=== PATIENT | male | born 1990 | race Caucasian/White ===

== ENCOUNTER 2019-10-11 23:51 | Observation (INO) | payer OTHER, SELFPAY ==
[2019-10-11 23:51] VITALS: BP 170/96; PULSE 75; RESP 16; TEMP 36.1; O2SAT 99; BMI 33.9
[2019-10-12] VITALS (8 sets, daily range): BP systolic 124–164; BP diastolic 70–101; PULSE 60–85; RESP 14–18; TEMP 36.3–36.8; O2SAT 96–100; BMI 34.9
--- NOTE | 2019-10-12 00:16 | ED.VIS.GI ---
History of Present Illness Chief Complaint: Chest Pain Informant: Patient - Abdominal Pain/Flank Pain Onset: Hours - 2-3 Context: Sudden Onset - mild, worsened Timing: Continuous Quality: Aching Location: Epigastric Current Severity: Severe Maximum Severity: Severe Worsened by: Nothing Relieved by: Antacids - initially TUMS seemed to help a little but then sx worsened quickly. took ranitidine also. - Nausea/Vomiting/Emesis GI Symptom: Negative for: Nausea, Vomiting - Diarrhea/Melena/Hematochezia GI Symptom: Negative for: Diarrhea, Melena, Hematochezia Associated Symptoms: Negative for: Dysuria, Frequency, Hematuria, Urgency Narrative: Pain in epigastrium and lower retrosternal area. States he initially felt like this was indigestion he has had before, however it became a lot worse and he has never had a do this before. He was sitting on the couch when it started. Lying down versus sitting up does not make a difference. It is not exertional. No dyspnea. No radiation of the discomfort into his back, arms, jaw, lower abdomen, or elsewhere. Has history of mild intermittent asthma, which is not related to this. Denies any pain or swelling in his legs recently. Nonpleuritic discomfort. No nausea or vomiting, he tried to gag himself because he thought that vomiting might make this feel better, however he was not able to vomit with gagging himself either. He admits that he has been having milder form of this discomfort that he has been calling [facility] nightly for the past 1 or 2 weeks. He has seen no association with meals. He denies any significant NSAID use for any reason recently. - Past Medical History (1) Mild asthma Status: Chronic Past Medical History - Allergies and Home Meds Allergies/Adverse Reactions: Allergies No Known Allergies Allergy (Verified 10/12/19 00:00) Primary Care Physician: NOT,DEFINED [NON-STAFF] - Surgical History: no surgical history Smoking Status: Never smoker Alcohol: None Review of Systems General: Denies: Chills, Fever, Sweats Eyes: Denies: Visual changes - bilaterally, Diplopia ENT: Denies: Rhinorrhea, Sore throat Cardiovascular: Reports: Chest pain. Denies: Palpitations Respiratory: Denies: Dyspnea, Cough, Dyspnea on exertion Gastrointestinal: Reports: Abdominal pain. Denies: Nausea, Vomiting, Diarrhea, Melena, Hematochezia Genitourinary: Denies: Dysuria, Hematuria, Frequency Musculoskeletal: Denies: Back pain, Swelling, Extremity Pain Skin: Denies: Rash, Wounds Neurological: Denies: Headache, Weakness, Numbness Physical Exam Vital Signs/Narrative: Vital Signs Temp Pulse Resp BP Pulse Ox 10/12/19 00:08 74 14 164/101 H 100 10/11/19 23:51 97 F L 75 16 170/96 H 99 Inital Vital Signs reviewed: Yes General: Well nourished, Well developed, No Acute Distress - uncomfortable, no distress Head: Normocephalic, Atraumatic Eyes: Perrl, EOMI ENT: Moist mucous membranes, No rhinorrhea Neck: Supple, Nontender. Negative for: No lymphadenopathy Cardiovascular: Regular rate, Regular rhythm, No murmurs Respiratory: No distress, CTA bilaterally, Chest nontender Abdomen: Soft, Nondistended, Normal bowel sounds, No masses, Tender - epigastrium > upper abd; rest of abd benign/NT. Negative for: Guarding, Rebound tenderness Back: Nontender, Normal Inspection. Negative for: CVA tenderness Extremities: Nontender, No edema. Negative for: Calf Tenderness Skin: Normal color, No rash, No Trauma Neurological: Alert, Oriented x3, Cranial nerves II-XII grossly intact, Normal Strength, Normal Sensation, Normal Gait Psychological: Normal affect, Normal Mood Diagnostic/Tx/Re-eval Impressions Abdomen/Pelvis CT 10/12/19 01:05 IMPRESSION: Thoracolumbar spine degenerative disease with increased kyphosis otherwise unremarkable unenhanced CT of the abdomen and pelvis. Specifically, no acute process throughout the gastrointestinal tract noted. No bowel obstruction. Abdominal viscera are unremarkable. Electronically Signed: Herlinda Huertas MD at 2:00 EDT , Service support , 10/12/19 01:05 CT Abd [Abdomen/Pelvis W IV Cont ONLY] [CT] Stat 10/12/19 03:16 US Gallbladder [Gallbladder] [US] Stat Laboratory Results 10/12/19 10/12/19 00:13 00:13 WBC 8.7 RBC 5.61 Hgb 16.2 Hct 48.0 MCV 85.6 MCH 28.9 MCHC 33.8 RDW Std Deviation 37.6 RDW Coeff of Roxi 12.1 Plt Count 229 MPV 8.7 Immature Gran % (Auto) 0.800 Neut % (Auto) 60.1 Lymph % (Auto) 28.0 Pondera % (Auto) 8.0 Eos % (Auto) 2.3 Baso % (Auto) 0.8 Absolute Neuts (auto) 5.2 Absolute Lymphs (auto) 2.42 Nucleated RBC % 0 Sodium 140 Potassium 3.9 Chloride 106 Carbon Dioxide 30.0 Anion Gap 4 L BUN 19 H Creatinine 1.37 H Estim Creat Clear Calc 88.11 Est GFR (MDRD) Af Amer 79 Est GFR (MDRD) Non-Af 66 BUN/Creatinine Ratio 13.9 Glucose 104 Calcium 9.4 Total Bilirubin 0.50 AST 21 ALT 39 Alkaline Phosphatase 94 Troponin I < 0.015 Total Protein 8.0 Albumin 4.4 Globulin 3.6 Albumin/Globulin Ratio 1.2 Lipase 116 - Rhythm Strip Rhythm Strip: Sinus Rhythm Rate: 72 Ectopy: None - EKG Initial EKG Interpretation: Sinus Rhythm, No Acute Injury Pattern - normal EKG - Medical Decision Making Initially patient was given a GI cocktail although this did not help at all. He was then given morphine, he proceeded to have vomiting, and the morphine did not help very much. I then performed a bedside ultrasound of his gallbladder since the patient presents after ultrasound is gone and not available, and he was treated with Zofran. On my bedside [id number] exam, he has a gallstone that is shadowing in the neck of the gallbladder, and he has a positive sonographic Bullard's. CT abdomen/pelvis is ordered and he is given Toradol in addition, as I suspect the gallstone is causing his symptoms. Results are as above, unremarkable. Toradol did not really help him so he was given Dilaudid, this did help his pain. He was observed. His pain started coming back and I reexamined him. He has a positive sonographic Bullard's and a positive clinical Bullard's. He was given more pain medication, and at this time it is becoming more evident that he likely has early acute cholecystitis. I discussed with Dr. Kirkpatrick, she is in agreement and agrees to admit him, requesting that an ultrasound be obtained/ordered for the morning when staff arrives. ED Disposition - Plan for ED Patient: Disposition: Acute Care Hospital [facility] [place] [facility] Diagnosis: Acute cholecystitis due to biliary calculus Referrals: NOT,DEFINED [NON-STAFF] -
[2019-10-12 00:23] LABS: Absolute Lymphocyte Count 2.42 X10^3/uL (0.83-4.51); Absolute Neutrophil Count 5.2 X10^3/uL (2.0-7.7); Basophil# 0.07 X10^3/uL; Basophil% 0.8 % (0-1); Eosinophils% 2.3 % (0-5); Hemoglobin 16.2 g/dL (13.0-16.5); Lymphocyte # 2.42 X10^3/ul (4.0); Mean Corp Hgb Conc 33.8 g/dL (32-36); Mean Corpuscular Hgb 28.9 pg (27.0-32.0); Mean Corpuscular Volume 85.6 fL (80-94); Mean Platelet Vol. 8.7 fl (6.2-12.0); Monocyte# 0.69 X10^3/uL; NRBC Flagged by Analyzer 0 % (0-5); Neutrophil % 60.1 % (47-70); Platelet Count 229 K/mm3 (150-450); RBC Distribution Width CV 12.1 % (11.6-14.6); RBC Distribution Width SD 37.6 fl (35.1-43.9); Red Blood Count 5.61 M/mm3 (4.6-6.2); White Blood Count 8.7 K/mm3 (4.4-11.0)
--- NOTE | 2019-10-12 00:27 | EKG12_ITS ---
Test Reason : CP Blood Pressure : / mmHG Vent. Rate : 072 BPM Atrial Rate : 072 BPM P-R Int : 160 ms QRS Dur : 112 ms QT Int : 378 ms P-R-T Axes : -06 024 042 degrees QTc Int : 413 ms Normal sinus rhythm Normal ECG Confirmed by HERIBERTO LOW MD ([id number]), newspaper editor managing EMMETT PEGUERO ([id number]) on 10/12/2019 11:14:11 AM Referred By: BB Confirmed By:HERIBERTO LOW MD
[2019-10-12] MEDS: Mag Hydrox/Al Hydrox/Simeth 30 ML UDC PO (00:28)
[2019-10-12 00:37] LABS: ALB/GLOB Ratio 1.2 RATIO (0.9-2.4); AST(SGOT) 21 U/L (15-37); Alanine Aminotransfer ALT/SGPT 39 U/L (16-61); Albumin, Serum 4.4 g/dL (3.2-5.0); Alkaline Phosphatase 94 U/L (45-117); Anion Gap 4 (5-15); BUN 19 mg/dL (7-18); BUN/Creat Ratio 13.9 RATIO (10-20); Calcium,Total 9.4 mg/dL (8.5-10.1); Chloride 106 mmol/L (98-107); Creatinine, Serum 1.37 mg/dL (0.70-1.30); EST Glomerular Filtration Rate 66 mL/min (>60); Est Glom Filt Rate - Afr Amer 79 mL/min (>60); Estimated Creatinine Clearance 88.11 ml/min; Globulin 3.6 g/dL (2.2-4.2); Glucose 104 mg/dL (74-106); Lipase 116 U/L (73-393); Potassium 3.9 mmol/L (3.5-5.1); Sodium Level 140 mmol/L (136-145)
[2019-10-12] MEDS: Morphine 4 MG/ML Syringe IV (01:01)
[2019-10-12] MEDS: Ondansetron 4 MG/2 ML Vial IV (01:03)
--- NOTE | 2019-10-12 01:05 | CT_ITS ---
STUDY: CT ABDOMEN AND PELVIS WITHOUT CONTRAST REASON FOR EXAM: Male, 29 years old. UPPER ABD PAIN X SEVERAL HOURS. NKI. Hx of asthma and GERD RADIATION DOSAGE (If Supplied By Facility): CTDIvol = ( 16.35 ) mGy, DLP = ( 1338.73 ) mGycm TECHNIQUE: Transaxial images were obtained from the dome of the diaphragm to the symphysis pubis without oral contrast, and without intravenous contrast. Sagittal and coronal images were reconstructed. Individualized dose optimization techniques were used for this CT. COMPARISON: None. FINDINGS: The visualized lung bases are unremarkable. The visualized portions of the heart are within normal limits. Normal liver. Normal gallbladder and extrahepatic biliary system. Normal spleen. Normal pancreas. Normal bilateral adrenal glands. Normal right kidney. Normal left kidney. Normal visualized stomach. Normal small intestine. Normal colon. The appendix is visualized and appears normal. Normal abdominal aorta. Normal inferior vena cava. Normal retroperitoneum. Normal urinary bladder. Normal abdominal wall. Increased kyphosis at thoracolumbar junction with degenerative disc disease. CT/Abdomen/Pelvis W IV Cont ONLY IMPRESSION: Thoracolumbar spine degenerative disease with increased kyphosis otherwise unremarkable unenhanced CT of the abdomen and pelvis. Specifically, no acute process throughout the gastrointestinal tract noted. No bowel obstruction. Abdominal viscera are unremarkable. Electronically Signed: Herlinda Huertas MD at 2:00 EDT , Service support ,
[2019-10-12] MEDS: Ketorolac 30 MG/ML Syringe IV ×3 (01:09→21:00)
[2019-10-12] MEDS: HYDROmorphone 1 MG/ML Syringe IV ×2 (01:46→03:09)
--- NOTE | 2019-10-12 03:16 | US_ITS ---
STUDY: ABDOMINAL ULTRASOUND - RIGHT UPPER QUADRANT REASON FOR VISIT: Male, 29 years old right upper quadrant pain. TECHNIQUE: Ultrasound evaluation of the right upper quadrant was performed with real-time and static renee-scale imaging. TECHNICAL QUALITY: Adequate. COMPARISON: CT abdomen and pelvis October 12, 2019. FINDINGS: Liver: The liver measures 19.4 cm. There is increased echogenicity consistent with fatty infiltration. The bile ducts are within normal limits. There is hepatic color flow. The direction of portal flow is hepatopetal. There is no demonstrated mass lesion. Gallbladder: Borderline distended gallbladder. The gallbladder wall measures 4 mm. There is a negative sonographic Bullard''s sign. There is no pericholecystic fluid. There is a solitary echogenic gallstone within the gallbladder. Common Bile Duct (C.B.D.): The common bile duct measures 3 mm. Pancreas not visualized due to overlying bowel gas but normal on the recent CT scan. Right Kidney: Normal size of the right kidney. The right kidney measures 10.4 cm. Normal renal cortex. The right cortex measures 1.6 cm. There is no demonstrated renal mass or cyst. There is no right hydronephrosis. The CT scan of the abdomen and pelvis was reviewed. The spleen is at the upper limits of normal in size or mildly enlarged. US/Gallbladder IMPRESSION: Borderline distended gallbladder, cholelithiasis and mild gallbladder wall thickening, findings suggestive but not diagnostic of acute cholecystitis. Fatty liver. On the CT scan borderline splenomegaly. Electronically Signed: Phoenix Sena MD at 5:31 EDT , Service support ,
[2019-10-12] MEDS: Lactated Ringers 1,000 ML 150 ML IV ×2 (04:49→18:32)
--- NOTE | 2019-10-12 07:27 | PCM.HP.BLA ---
History and Physical Date of Admission: 10/12/19 Chief Complaint: abdominal pain History of Present Illness: 29 y/o otherwise healthy WM presents with complaint of right upper quadrant abdominal pain. He has noted this for the less than a day prior to admission. He did not a weeks history of acid indigestion and heartburn for which he took OTC ranitidine and TUMS and this seemed to help. He also noted greater than a week about, less than a day of abdominal crampy pain and nausea, and felt that this may have been an intestinal bug The pain was severe last night, 10 out of 10 on scale of 1-10 with 10 being the worst pain, presently it is a 1-2 out of 10. Denies fevers. Denies nausea/emesis at present. He was evaluated in ED - had normal WBC, normal LFTs, but pain was not able to be controlled by IV morphine. CT scan was obtained due to intractable pain - normal. Patient admitted for intractable abdominal pain. US obtained this morning - Gallbladder: Borderline distended gallbladder. The gallbladder wall measures 4 mm. There is a negative sonographic Bullard''s sign. There is no pericholecystic fluid. There is a solitary echogenic gallstone within the gallbladder. Common Bile Duct (C.B.D.): The common bile duct measures 3 mm. Pancreas not visualized due to overlying bowel gas but normal on the recent CT scan. Right Kidney: Normal size of the right kidney. The right kidney measures 10.4 cm. Normal renal cortex. The right cortex measures 1.6 cm. There is no demonstrated renal mass or cyst. There is no right hydronephrosis. The CT scan of the abdomen and pelvis was reviewed. The spleen is at the upper limits of normal in size or mildly enlarged. IMPRESSION: Borderline distended gallbladder, cholelithiasis and mild gallbladder wall thickening, findings suggestive but not diagnostic of acute cholecystitis. Fatty liver. 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 Review of Systems: General - denies fevers Cardiovascular denies chest pain, denies history of heart attack Pulmonary history of mild asthma - rarely symptomatic, denies shortness of breath, denies coughing up blood Gastrointestinal as per HPI Neurological denies denies seizures, denies history of stroke Genitourinary denies burning with urination, denies blood in urine Hematological denies spontaneous/prolonged bleeding Skin denies open non healing wounds Musculoskeletal denies history of fractures Endocrine denies diabetes Psychological denies hallucinations Physical examination: Vital signs Temp 97.9F HR 114 BP 151/86 RR 17[] BP [] General WD/WN WM in no apparent distress, alert and oriented, not septic appearing HEENT Normocephalic. EOM intact with sclera clear and no icterus noted. Neck is supple with no jugular venous distention noted. Trachea is midline. Lungs no labored breathing noted, such as retractions. No cough heard. Heart regular Abdomen soft but minimally tender in right upper quadrant with no peritoneal signs noted Extremities no calf tenderness noted. No pitting edema noted. Genitourinary/Rectal deferred Skin normal skin integrity. Neurological non focal Psychological normal affect, patient is calm and appropriate Impression: right upper quadrant abdominal pain cholelithiasis Discussion/Plan: I have discussed the above with the patient. The patient understands that in the present COVID crisis, indications for surgery are limited with gallbladder disease. I have offered laparoscopic cholecystectomy if there is evidence of cholecystitis and/or patient with intractable pain that will cause detriment to his QOL. He understands that the stresses of surgery may make him more susceptible to infections. I have explained the procedure to the patient. I have counseled the patient as to the risks of the procedure, including but not limited to: infection, bleeding, injury to any blood vessels/nerves, scar tissue, injury to any intraabdominal organs, injury to kidney/ureters, injury to bowel/bladder, injury to the common bile duct/biliary tree, bile leakage, intraabdominal abscess/bleeding, hernias at incisional sites, wound infections, possible open procedure, complications of anesthesia, postoperative pneumonia/cardiac problems/blood clots etc. the patient understands. He will think about his options I have answered all questions to the patient?s satisfaction and the patient has no further questions.
--- NOTE | 2019-10-12 07:55 | NM_ITS ---
CLINICAL: Male, 29 years old. Abdominal pain -- possible cholecystitis NUCLEAR BILIARY SCAN TECHNIQUE: Following the intravenous administration of 5.6 mCi of Tc Mebrofenin, hepatobiliary images was performed. Cholecystokinin (0.02 ug/kg) was then administered intravenously over a INSERT TIME minute period. COMPARISON STUDIES : Comparison made with prior sonogram and CT scan the abdomen and pelvis done earlier in the day. FINDINGS: Relatively prompt and homogeneous radiopharmaceutical concentration is noted by a normal sized liver. There are no parenchymal defects noted.. The gallbladder is not seen up to 2 hours following the injection of the radiopharmaceutical. Findings are in keeping with acute cholecystitis. NM/Hepatobilliary Img w/Pharm Int IMPRESSION: Findings in keeping with acute cholecystitis. Electronically Signed: Alexi Hope, at 14:56 EDT , Service support ,
[2019-10-12] MEDS: 0.9% Saline Lock 10 ML Syringe IV (11:28)
--- NOTE | 2019-10-12 16:04 | PCM.PN.BLA ---
Progress Note Discussed results of HIDA scan with patient, reveals non visualization of gallbladder consistent with acute cholecystitis. I have offered patient laparoscopic cholecystectomy, possible cholangiograms, patient asks for alternative - have also offered antibiotics and pain meds and discharge. Patient would like to trial regular diet and will think about it.
[2019-10-13] VITALS (11 sets, daily range): BP systolic 116–143; BP diastolic 63–85; PULSE 55–65; RESP 16–18; TEMP 36.1–36.8; O2SAT 92–99; BMI 34.9
--- NOTE | 2019-10-13 | GALL_PTH ---
PATIENT: JILLIAN KATZ LOC: PCU U#:[id number] AGE/SX: 29/M ROOM: [facility] RE10/12/[address]: Dr. Nancy Kirkpatrick MD : 1990 BED: 1 DIS: 10/13/2019 SPEC #: [id number] RECD: 10/14/19 11:08 STATUS: YAYA REQ #: [id number] LAURA: 10/13/19 00:[address]: Nancy Kirkpatrick DEPT: SURGICAL PATHOLOGY RECD BY: Campos Peña ENTERED: 10/14/19 11:08 SP TYPE: GHANSHYAM RODRIGUEZ DR: No Primary Care Phys Tissues: Gallbladder, NOS Procedures: Surgery Specimen Level III HEADER OPERATION: Laparoscopic cholecystectomy PRE-OP DIAGNOSIS: Cholelithiasis, acute cholecystitis TISSUE SUBMITTED: Gallbladder and contents MICROSCOPIC DIAGNOSIS Gallbladder, cholecystectomy: Acute and chronic cholecystitis with focal denudation of mucosa. Cholelithiasis. AM:edgar 10/15/19 MICROSCOPIC DESCRIPTION Slides are reviewed. GROSS DESCRIPTION Received is one container labeled with the patient's name and designated gallbladder. The specimen consists of a gallbladder measuring 7 cm in length and up to 3 cm in diameter. The external surface is pink-lozano, smooth and glistening for the most part. Focally it is granular, hemorrhagic and contains cautery artifact. The gallbladder contains green-yellow mucoid bile and one mulberry, greenish stone measuring 1 cm in diameter and one yellow, mulberry stone measuring 0.5 cm in greatest dimension. The mucosa is bile-stained and without any mass lesions. The gallbladder wall measures up to 0.3 cm in thickness. Card Mounter sections from the gallbladder and the cystic duct are submitted in one cassette. / SJ:edgar 10/14/19 TC:2 CPT: 08530
[2019-10-13] MEDS: Lactated Ringers 1,000 ML 150 ML IV ×2 (01:30→08:24)
[2019-10-13] MEDS: Ketorolac 30 MG/ML Syringe IV ×2 (05:13→14:13)
--- NOTE | 2019-10-13 10:55 | DCINST_ITS ---
Discharge Diet: No Restrictions - avoid carbonated beverages as they may cause bloating and discomfort after recent surgery drink plenty of fluids to keep well hydrated Discharge Activity: Return to Normal Activity, May not drive while taking narcotic pain medications. Return to work on:: 10/28/19 - may return to work earlier Lifting Restrictions: no lifting greater than 10 pounds for two weeks Additional Activity Instructions:: ambulation is encouraged. may climb stairs Call your doctor if your incision/area has: Continuous Slow Oozing, Foul Smelling Discharge Call your doctor if you observe: Fever of 101 or Higher Additional Dressing/Incision Instructions:: Leave dressings in place. May get wet in shower. Do not soak - no tub baths/swimming Additional Instructions: Recommended pain mediation regimen: take 650 mg acetaminophen (Tylenol), then in 3-4 hours take 600 mg ibuprofen (Motrin), then in 3-4 hours take 650 mg acetaminophen, then in 3-4 hours take 600 mg ibuprofen, and so on for 2-3 days take narcotic pain medication for breakthrough pain and at night If you feel constipated - you can take an over the counter laxative TRAVEL RESTRICTIONS: Avoid travel for two weeks after surgery (10/13/2019), especially airplane travel. Allergies/Adverse Reactions: Allergies No Known Allergies Allergy (Verified 10/12/19 00:00) Medications to take at Discharge Albuterol Sulfate [Albuterol Sulfate HFA] 2 puff INHALATION Q4H PRN PRN 10/12/19 Amoxicillin/Potassium Clav [Augmentin 875-125 Tablet] 1 ea PO BID 7 Days #14 tab 10/12/19 Hydrocodone Bitart/Apap 5-325 [Paterson 5MG-325MG] 1 tablet PO Q8H PRN PRN 5 Days #15 tablet 10/13/19 The following prescriptions were given: Amoxicillin/Potassium Clav [Augmentin 875-125 Tablet] 1 ea PO BID 7 Days #14 tab Transmission Status: Received by [facility]/pharmacy #[id number] Hydrocodone Bitart/Apap 5-325 [Pat[place] 5MG-325MG] 1 tablet PO Q8H PRN PRN 5 Days #15 tablet PRN Reason: Pain Transmission Status: Received by [facility]pharmacy #[id number] Primary Care Physician: NOT,DEFINED [NON-STAFF] - Test Results: Test results from this visit will be discussed in further detail at your follow- up appointment, if applicable. Please Follow Up With: Nancy Kirkpatrick MD - When: to be arranged by clinic staff
--- NOTE | 2019-10-13 11:16 | OP.PCM_ITS ---
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 Appropriate time out protocol was followed. He was then placed in the supine position. The patient was then placed under general endotracheal anesthesia. The abdomen was then prepped with a sterile surgical skin preparation and sterile surgical drapes were placed. The infraumbilical skin fold was grasped with penetrating clamps and the skin and subcutaneous tissues were infiltrated with 0.25% marcaine with epinephrine. A transverse skin incision was then made with a 15 blade scalpel. The anterior abdominal wall was elevated and a Veress needle was carefully inserted into the intraabdominal cavity. It was checked to be in the proper position with a normal saline drop test. A CO2 pneumoperitoneum was then created. Once this was achieved, then the Veress needle was removed and an 11mm trocar was placed in its stead. A 10mm laparoscope was then inserted into the trocar and careful attention was directed to the intraabdominal contents. There was no evidence of injury to any intraabdominal organs from insertion of the Veress needle or the trocar. Under direct visualization, a 5mm subxiphoid trocar and two lateral 5mm right subcostal trocars were placed. The skin and subcutaneous tissues at these sites were infiltrated with 0.25% marcaine with epinephrine prior to placement of these trocars. Attention was then directed to the right upper quadrant of the abdomen. Graspers were placed in the lateral trocars to grasp the distal aspect of the gallbladder and direct it cephalad and to grasp the gallbladder at Bess?s pouch and direct it laterally. There were inflammatory adhesions of the omentum to the gallbladder wall. These were taken down by sharp dissection, any bleeding was controlled with electrocoagulation. The area of the triangle of Calot was also edematous and inflamed appearing. The gallbladder wall was also edematous and inflamed appearing. Dissection then began on the proximal gallbladder continuing down to the area of the triangle of Calot to bluntly dissect out the cystic duct. The neck of the gallbladder was identified. A short segment of the cystic duct was also bluntly dissected for delineation. A clip was then placed on the neck of the gallbladder. A small ductotomy was then made. A Ranfac catheter was brought in through a separate skin incision. It was attempted to cannulate the cystic duct but this could not be done, despite making another more proximal ductotomy, because the lumen of the cystic duct was too small. Therefore the cholangiograms was aborted. The Ranfac catheter was then removed. Two clips were placed proximal to the ductotomy and the cystic duct was then transected. The cystic artery was visualized and bluntly isolated and then two clips were placed proximally and one clip distally and then it was transected between the proximal and distal clips. The gallbladder was then from the liver bed using electrocautery. This took some time due to the inflamed nature and thick wall of the gallbladder. Once completely from the liver bed, it was placed in an Endobag. It was thus brought out of the umbilical port. It was then forwarded to pathology for analysis. The liver bed was carefully examined. There was no evidence of bile leakage or bleeding. The cystic duct stump and cystic artery stump had their clips intact and there was no evidence of bile leakage or bleeding. The remainder of the abdomen was grossly normal. The CO2 was released and all trocars removed intact. The periumbilical fascia was approximated with a [id number] 0 vicryl suture. All skin incision were closed with 4-0 monocryl in a subdermal fashion. Cavilol and Steristrips were used to reinforce the skin closure. Sterile dressings were applied to all wounds. The patient was extubated and brought to the Recovery Room in stable condition. - Complications none noted - Admit VTE Documentation VTE Present on Admission: Yes VTE Mechan Device Prophylaxis: SCD's
[2019-10-13] MEDS: Bupiv/Epi 0.25% 30 ML Vial (12:30)
[2019-10-13] MEDS: HYDROmorphone 0.5 MG/0.5 ML SYRINGE IV (15:57)
[2019-10-13] MEDS: HYDROcodone Bitartrate/Apap 5/325 Tablet PO (16:53)
== END 2019-10-13 14:08 | disposition home or self-care (01) ==
LOC: ED 10-12 01:50 → PCU 10-12 03:27
PROVIDERS: Admitting Provider Surgery; Emergency Provider Emergency Medicine; Visit Provider Surgery
PROC: (CPT 47610; principal; 2019-10-13 10:50)
DX: K80.12 Calculus of gallbladder with acute and chronic cholecystitis without obstruction (principal); J45.20 Mild intermittent asthma, uncomplicated
CPT/HCPCS: 47562; 74177; 76705; 78227; 80053; 83690; 84484; 85025; 88304; 93005; 96361; 96365; 96366; 96375; 96376; 99218; 99284; A9537; J7030; J7120; Q9967; A4216; G0378; J2405

== ENCOUNTER → 2021-02-28 | Outpatient (CLI) | payer OTHER, SELFPAY | END | disposition home or self-care (01) | LOC: LABSPEC 10:22 | PROVIDERS: PCP Family Medicine; Referring Provider Family Medicine; Visit Provider Family Medicine | DX: Z20.822 Contact with and (suspected) exposure to COVID-19 (principal) | CPT/HCPCS: 87635; U0005; U0003 ==

== ENCOUNTER 2022-07-08 08:07 | Emergency (ER) | payer OTHER, SELFPAY ==
[2022-07-08 08:08] VITALS: BP 155/90; PULSE 78; RESP 18; TEMP 35.8; O2SAT 98; BMI 35.3
[2022-07-08 08:09] VITALS: BP 136/82; PULSE 66; RESP 18; TEMP 36.3; O2SAT 95
--- NOTE | 2022-07-08 08:17 | EDS_ITS ---
HPI HPI - GI History of Present Illness Chief Complaint: Diarrhea Narrative Narrative: 32-year-old male presenting with diarrhea and diffuse crampy abdominal pain for about 5 days. Patient states has not eaten anything exotic. He has not had any recent travel. Nobody else is sick at his home. He has not had a fever that he knows of. No black or bloody stools. He states his stools are mostly mucus. He states they are loose but they are not completely liquid. Patient states he has asthma and had some nasal congestion and shortness of breath in May and was on a course of Augmentin for 7 days. No history of C. difficile. He has been able to eat and drink although he does complain of some nausea. He has not vomited. No urinary symptoms. PFSH PFSH Medical History no medical history Home Medications albuterol sulfate 90 mcg/actuation aerosol inhaler 2 puff inhalation Q4H PRN PRN Sob &/Or Wheezing 10/12/19 [History Last Taken Unknown] dicyclomine 10 mg capsule 10 mg PO TID PRN cramps #20 caps 07/08/22 [Rx Last Taken Unknown] ondansetron 4 mg disintegrating tablet 4 mg PO Q8H PRN nausea and vomiting #14 tabs 07/08/22 [Rx Last Taken Unknown] Allergy/AdvReac Type Severity Reaction Status Date / Time No Known Allergies Allergy Verified 07/08/22 08:10 Surgical History (Updated 07/08/22 @ 08:34 by Ying Donaldson) Hx of cholecystectomy Social History Smoking Status: Never smoker ROS [facility] ED Constitutional Constitutional ED: Denies chills or fever(s) ENT ENT ED: Denies rhinorrhea or sore throat Cardiovascular Cardiovascular: Denies palpitations or racing heartbeat Respiratory/Chest Respiratory/Chest: Denies cough or dyspnea Gastrointestinal Gastrointestinal: Reports diarrhea and nausea; Denies constipation or vomiting Genitourinary Genitourinary ED: Denies dysuria or hematuria Musculoskeletal Musculoskeletal: Denies arthralgias or back pain Integumentary Denies abscess or Abrasions Neurologic Neurologic: Denies headache(s) Psychiatric Psychiatric: Denies anxiety or depression Endocrine Endocrinology: Denies polydipsia or polyphagia EXAM Physical Exam Const Vital Signs: 07/08/22 08:08 07/08/22 08:09 Temperature 96.5 F L 97.4 F L Temperature Source Temporal Temporal Pulse Rate 78 66 Respiratory Rate 18 18 Blood Pressure 155/90 H 136/82 H Blood Pressure Mean 111 100 Pulse Ox 98 95 Oxygen Delivery Method Room Air Room Air Positive well nourished General Appearance ED: NAD; Negative for pallor HEENT Reports moist mucous membranes normocephalic and atraumatic Eyes PERRL and EOMs intact bilaterally General Eye ED: Negative for pale conjunctiva or scleral icterus Resp normal respiratory effort Effort and Inspection: Negative for respiratory distress Cardio regular rate and regular rhythm GI GI Narrative: Mild generalized pain which is mildly worse in the epigastric region. Abdomen nondistended. No rebound or guarding Back/Spine no CVA tenderness Neuro CN's II-XII intact bilaterally, moves all extremities and no sensory deficits noted Sensorium / Orientation: alert Motor Exam: strength 5/5 throughout Psych mental status grossly normal Skin General Skin Exam: Negative for jaundice or pallor MDM MDM MDM Narrative Medical decision making narrative: Patient presenting with nausea and diarrhea for 5 days. He has been able to eat and drink although he states everything goes right through him. He has not had a fever. He denies black or bloody stools. Patient treated with Bentyl and Zofran. CBC was obtained given the history of antibiotics and concern for possible C. difficile. Patient noted to be leukopenic. This makes C. difficile less likely and makes a viral etiology more likely. Hemoglobin hematocrit are stable. Platelets are normal at 157. Renal function and electrolytes are within normal limits. LFTs are normal. Lipase is within normal limits. I did send for stool studies. Patient will follow up with for these on the patient portal. Patient discharged with Bentyl and Zofran. Impression: 1. Diarrhea 2. Nausea Lab Data Labs: Laboratory Results - last 24 hr 07/08/22 07/08/22 08:35 08:35 WBC 3.8 L RBC 5.44 Hgb 15.9 Hct 46.1 MCV 84.7 MCH 29.2 MCHC 34.5 RDW Std Deviation 39.0 RDW Coeff of Roxi 12.7 Plt Count 157 MPV 8.7 Immature Gran % (Auto) 0.300 Neut % (Auto) 48.8 Lymph % (Auto) 26.9 [place] % (Auto) 18.0 H Eos % (Auto) 5.5 H Baso % (Auto) 0.5 Absolute Neuts (auto) 1.9 L Absolute Lymphs (auto) 1.03 Nucleated RBC % 0 Sodium 139 Potassium 3.9 Chloride 109 H Carbon Dioxide 26.0 Anion Gap 4 L BUN 11 Creatinine 1.09 Estim Creat Clear Calc 107.78 Est GFR (MDRD) Af Amer 101 Est GFR (MDRD) Non-Af 84 BUN/Creatinine Ratio 10.1 Glucose 95 Calcium 9.0 Total Bilirubin 0.70 AST 16 ALT 34 Alkaline Phosphatase 82 Total Protein 7.2 Albumin 3.8 Globulin 3.4 Albumin/Globulin Ratio 1.1 Lipase 96 Discharge Plan Triage Chief Complaint: Diarrhea ED Provider: Veto Dave Dx/Rx/DC Orders Instructions: ED Diarrhea, Unknown Cause Prescriptions: New dicyclomine 10 mg capsule 10 mg PO TID PRN (Reason: cramps) Qty: 20 0RF ondansetron 4 mg tablet,disintegrating 4 mg PO Q8H PRN (Reason: nausea and vomiting) Qty: 14 0RF No Action albuterol sulfate 90 mcg/actuation HFA aerosol inhaler 2 puff inhalation Q4H PRN PRN (Reason: Sob &/Or Wheezing) Primary Care Provider: Moshe Lilly Referrals: Moshe Lilly MD [Primary Care Provider] - Disposition Disposition: Home, Self Care
[2022-07-08] MEDS: Dicyclomine 10 MG Capsule 20 MG PO (08:22)
[2022-07-08] MEDS: Ondansetron 4 MG/2 ML Vial IV (08:28)
[2022-07-08 08:47] LABS: Absolute Lymphocyte Count 1.03 X10^3/uL (0.83-4.51); Absolute Neutrophil Count 1.9 X10^3/uL (2.0-7.7); Basophil# 0.02 X10^3/uL; Basophil% 0.5 % (0-1); Eosinophil# 0.21 X10^3/uL; Eosinophils% 5.5 % (0-5); Hematocrit 46.1 % (40-54); Hemoglobin 15.9 g/dL (13.0-16.5); Lymphocyte # 1.03 X10^3/ul (0.83-4.51); Lymphocyte % 26.9 % (19-41); Mean Corp Hgb Conc 34.5 g/dL (32-36); Mean Corpuscular Hgb 29.2 pg (27.0-32.0); Mean Corpuscular Volume 84.7 fL (80-94); Mean Platelet Vol. 8.7 fl (6.2-12.0); Monocyte# 0.69 X10^3/uL; NRBC Flagged by Analyzer 0 % (0-5); Neutrophil # 1.87 X10^3/uL (2.7-7.7); Neutrophil % 48.8 % (47-70); Platelet Count 157 K/mm3 (150-450); RBC Distribution Width CV 12.7 % (11.6-14.6); Red Blood Count 5.44 M/mm3 (4.6-6.2); White Blood Count 3.8 K/mm3 (4.4-11.0)
[2022-07-08 09:09] VITALS: BP 132/81; PULSE 69; RESP 16; TEMP 36.4; O2SAT 97
[2022-07-08 09:13] LABS: ALB/GLOB Ratio 1.1 RATIO (0.9-2.4); AST(SGOT) 16 U/L (15-37); Alanine Aminotransfer ALT/SGPT 34 U/L (16-61); Albumin, Serum 3.8 g/dL (3.2-5.0); Alkaline Phosphatase 82 U/L (45-117); Anion Gap 4 (5-15); BUN 11 mg/dL (7-18); BUN/Creat Ratio 10.1 RATIO (10-20); Chloride 109 mmol/L (98-107); Creatinine, Serum 1.09 mg/dL (0.70-1.30); EST Glomerular Filtration Rate 84 mL/min (>60); Est Glom Filt Rate - Afr Amer 101 mL/min (>60); Estimated Creatinine Clearance 107.78 ml/min; Globulin 3.4 g/dL (2.2-4.2); Glucose 95 mg/dL (74-106); Lipase 96 U/L (73-393); Potassium 3.9 mmol/L (3.5-5.1); Protein, Total 7.2 g/dL (6.4-8.2); Sodium Level 139 mmol/L (136-145)
[2022-07-08 09:41] VITALS: BP 123/79; PULSE 67; RESP 16; TEMP 36.6; O2SAT 98
== END 2022-07-08 09:46 | disposition home or self-care (01) ==
PROVIDERS: Emergency Provider Student in an Organized Health Care Education/Training Program; PCP Family Medicine; Visit Provider Student in an Organized Health Care Education/Training Program
DX: R19.7 Diarrhea, unspecified (principal); R10.84 Generalized abdominal pain; R11.0 Nausea; J45.909 Unspecified asthma, uncomplicated
CPT/HCPCS: 80053; 83690; 85025; 87177; 87209; 87493; 87506; 96374; 99284; A4216; J2405